=== PATIENT | female | born 1990 | race Caucasian/White ===

== ENCOUNTER 2017-01-18 18:29 | Emergency (ER) | payer OTHER ==
[~2017-01-18] VITALS: Ht 157.5 cm; Wt 80.8 kg
[~2017-01-18 18:29] MED LIST: ONDA4TAB7 SL; PEDICHW34 PO
[2017-01-18 18:38] VITALS: TEMP 36.9; Ht 157.5 cm; Wt 80.8 kg
--- NOTE | 2017-01-18 19:54 | EMERGENCY ROOM VISIT NOTE ---
History First contact with patient: 19:52 Chief Complaint: CHEST PAIN Stated Complaint: CHEST PAIN Nursing Triage Summary: Patient presents with c/o chest pain and shortness of breath that began around 1400 today Has a history of anxiety, states this feels worse History of Present Illness The patient is a 26 year old female who presents to the Emergency Room with complaints of chest pain which originally started as a faint substernal chest pain this morning and has gradually worsening in intensity to a 7/10 at approx 1700 this evening. She states that it radiates to both chests and is described as a heaviness. Worse with specific movements and deep breath. She notes she does have anxiety and has had chest pain with that however "this is worse". She states that she has no history of long travel, OCP use ( has tubal ligation) or history of DVT/PE in her or family. Patient is a smoker. No history of MD/ CVA. Review of Systems A 10 point review of systems was completed and negative aside from above Past Medical/Surgical History Sarcoidosis Anxiety Family History Patient reports no known family medical history. Social History Smoking Status: Current Every Day Smoker Smokeless Tobacco Use: No Alcohol Use: occasionally (hydrocodone) Drug Use: none Marital Status: Housing Status: lives with family Current/Historical Medications Scheduled Fluticasone Prop/Salmeterol (Advair Diskus 100/50 60 Dose), 1 PUFFS INH BID Allergies Hydrocodone Physical Exam Vital Signs Date Time Temp Pulse Resp B/P (MAP) Pulse Ox O2 Delivery O2 Flow Rate FiO2 01/18/17 21:30 76 21 143/95 96 Room Air 01/18/17 21:00 76 26 129/92 96 Room Air 01/18/17 20:50 81 16 99 Room Air 01/18/17 20:30 78 01/18/17 20:30 82 23 128/89 98 Room Air 01/18/17 20:20 98 Room Air 01/18/17 20:20 99 Room Air 01/18/17 18:38 36.9 87 20 152/96 100 Room Air Physical Exam General: ambulatory, not in acute distress Skin: no rashes noted, no suspicious lesions, no areas of inflammations/ lacerations/ erythema noted CVS: S1/ S2 noted, RRR, no rubs/ murmurs noted, no cyanosis, pain not reproducible with palpation RVS: Diffuse expiratory wheezing, not in acute respiratory distress ENT: no erythema/ injection/ ulcerations noted in the pharynx Neck: inspection WNL, full ROM of neck ABD: BSx4, no pain/ tenderness on palpation, no organomegaly, negative murphys, psoas, Rovsing, CVA tenderness MSK: inspection of all limbs WNL, motor and sensation intact in all limbs, no swelling/ pain on palpation of joints NVS: alert and oriented x 3 Lymph: No lymphadenopathy palpable Medical Decision & Procedures ER Provider Diagnostic Interpretation: CHEST ONE VIEW PORTABLE HISTORY: 26 years-old Female chest pain acute atypical chest pain. COMPARISON: None available. TECHNIQUE: Portable upright AP view of the chest FINDINGS: Cardiomediastinal and hilar silhouettes are within normal limits. There is no pneumothorax, pleural effusion, focal airspace consolidation or overt pulmonary edema. The bones appear grossly intact. IMPRESSION: No acute cardiopulmonary process. Laboratory Results 01/18/17 20:05 Red Blood Count 5.16, Mean Corpuscular Volume 84.5, Mean Corpuscular Hemoglobin 28.1, Mean Corpuscular Hemoglobin Concent 33.3, Mean Platelet Volume 10.3, Neutrophils (%) (Auto) 62.7, Lymphocytes (%) (Auto) 18.3, Monocytes (%) (Auto) 10.9, Eosinophils (%) (Auto) 6.9, Basophils (%) (Auto) 0.5, Neutrophils # (Auto ) 6.72, Lymphocytes # (Auto) 1.96, Monocytes # (Auto) 1.17, Eosinophils # (Auto ) 0.74, Basophils # (Auto) 0.05 01/18/17 20:05 Test 01/18/17 19:52 01/18/17 20:05 Creatine Kinase MB Ratio (0-3.0) White Blood Count 10.71 K/uL (4.8-10.8) Red Blood Count 5.16 M/uL (4.2-5.4) Hemoglobin 14.5 g/dL (12.0-16.0) Hematocrit 43.6 % (37-47) Mean Corpuscular Volume 84.5 fL (80-100) Mean Corpuscular Hemoglobin 28.1 pg (25-34) Mean Corpuscular Hemoglobin Concent 33.3 g/dl (32-36) Platelet Count 230 K/uL (130-400) Mean Platelet Volume 10.3 fL (7.4-10.4) Neutrophils (%) (Auto) 62.7 % Lymphocytes (%) (Auto) 18.3 % Monocytes (%) (Auto) 10.9 % Eosinophils (%) (Auto) 6.9 % Basophils (%) (Auto) 0.5 % Neutrophils # (Auto) 6.72 K/uL (1.4-6.5) Lymphocytes # (Auto) 1.96 K/uL (1.2-3.4) Monocytes # (Auto) 1.17 K/uL (0.11-0.59) Eosinophils # (Auto) 0.74 K/uL (0-0.5) Basophils # (Auto) 0.05 K/uL (0-0.2) RDW Standard Deviation 44.3 fL (36.4-46.3) RDW Coefficient of Variation 14.2 % (11.5-14.5) Immature Granulocyte % (Auto) 0.7 % Immature Granulocyte # (Auto) 0.07 K/uL (0.00-0.02) D-Dimer < 190 ug/L FEU (0-500) Anion Gap 7.0 mmol/L (3-11) Est Creatinine Clear Calc Drug Dose 99.1 ml/min Estimated GFR () 110.4 Estimated GFR (Non- 95.3 BUN/Creatinine Ratio 13.2 (10-20) Calcium Level 9.2 mg/dl (8.5-10.1) Total Bilirubin 0.3 mg/dl (0.2-1) Aspartate Amino Transf (AST/SGOT) 21 U/L (15-37) Alanine Aminotransferase (ALT/SGPT) 34 U/L (12-78) Alkaline Phosphatase 103 U/L (45-117) Creatine Kinase MB 0.5 ng/ml (0.5-3.6) Troponin I < 0.015 ng/ml (0-0.045) Total Protein 7.7 gm/dl (6.4-8.2) Albumin 3.8 gm/dl (3.4-5.0) Globulin 3.9 gm/dl (2.5-4.0) Albumin/Globulin Ratio 1.0 (0.9-2) Lipase 123 U/L (73-393) Medications Administered Medications (Trade) Dose Ordered Sig/Karlo Route Start Time Stop Time Status Last Admin Dose Admin Levalbuterol (Xopenex 0.63 Mg/ 3 Ml Neb) 0.63 mg NOW STAT INH 01/18/17 20:26 01/18/17 20:28 DC 01/18/17 20:48 0.63 MG Morphine Sulfate (MoRPHine SULFATE INJ) 2 mg NOW STAT IV 01/18/17 20:59 01/18/17 21:00 DC 01/18/17 21:17 2 MG Ondansetron HCl (Zofran Inj) 4 mg NOW STAT IV 01/18/17 20:59 01/18/17 21:00 DC 01/18/17 21:17 4 MG Ketorolac Tromethamine (Toradol Inj) 30 mg NOW STAT IV 01/18/17 21:30 01/18/17 21:32 DC 01/18/17 21:48 30 MG Lorazepam (Ativan Inj) 0.5 mg NOW STAT IV 01/18/17 21:34 01/18/17 21:35 DC 01/18/17 21:47 0.5 MG ECG Indication: chest pain Rate (beats per minute): 90 Rhythm: normal sinus Findings: no acute ischemic change, no ectopy Comparison ECG Date: no prior available ED Course 1949: Patient was assessed and evaluated by resident 1999: Duoneb x 1 ordered 2024: Duoneb changed to Xopenex 0.63 as the patient has a history of intolerance to albuterol 2049: Improvement in wheezing but no improvement in chest pain; Zofran 4 mg IV x 1, Morphine 2 mg IV x 1 2129: No improvement in pain, Toradol 30 mg IV x 1, states that this is effective ; 0.5 mg Iv ativan 2199: Improvement of chest pain, discussed instructions for discharge and patient agreeable Medical Decision Differential diagnosis: Etiologies such as cardiac ischemia, aortic dissection, pulmonary embolism, bronchitis, pneumonia, pneumothorax, musculoskeletal, infections, pericarditis, myocarditis, esophageal rupture, gastrointestinal, as well as others were entertained. This is a 26 yo f that is here for evaluation of chest pain. The patient on initial presentation had diffuse expiratory wheezing. Xopenex was trialed and there was improvment in wheezing however pain was ongoing. As pain continued and patient does have risk factors for DVT/ PE ( smoker) a ddimer was ordered. This was negative making it unlikely patient is suffering from a pulmonary embolism. CBC did not reveal leukocytosis or anemia. CMP did not reveal any acute processes or QUYNH. Troponin was negative which is reassuring as the patient has been having pain all day. As the patient has worsening pain with specific movements, negative work up patient is most likely suffering from musculoskeletal pain with an element of anxiety and asthma exacerbation. Patient had improvement of symptoms after Toradol and Ativan administration. Plan is for Xopenex q 2h hours over the next 24 hours with wean as well as an rx for advair. Discussed close follow up with PCP and pain control with Tylenol or NSAIDs. [place] Drug Monitoring Program Search Results: patient reviewed within database, no issues identified Blood Pressure Screening Patient's blood pressure: Elevated blood pressure Blood pressure disposition: Elevated BP felt to be situational Impression Primary Impression: Chest wall pain Departure Information Dispostion Home / Self-Care Condition GOOD Prescriptions Fluticasone Prop/Salmeterol (Advair Diskus 100/50 60 Dose) 1 Ea Aerp 1 PUFFS INH BID for 30 Days, #1 INHALER 5 Refills Prov: Vanessa Mccullough MD 01/18/17 Referrals Ayaz Bae (PCP) Patient Instructions My [facility]
[2017-01-18] MEDS ORDERED: ALBUT/IPRATROP 3MG/0.5MG NEB 3 ML VIAL INH SCH (20:00)
--- NOTE | 2017-01-18 20:13 | EMERGENCY ROOM VISIT NOTE ---
ED Visit Note First contact with patient: 19:52 Resident Physician Supervision Note: I interviewed and examined the patient. Discussed with Dr. Mccullough and agree with findings and plan as documented in the note. Documented By: Tima Colin Current/Historical Medications Scheduled Ondansetron (Zofran Odt), 4 MG SL Q6H Pediatric Multiple Vitamin W/ (Gummi Bear Multivitamin/M), 2 TAB PO DAILY Allergies Coded Allergies: Hydrocodone (Verified Allergy, Unknown, itching, 07/05/14) Vital Signs Date Time Temp Pulse Resp B/P (MAP) Pulse Ox O2 Delivery O2 Flow Rate FiO2 01/18/17 18:38 36.9 87 20 152/96 100 Room Air Laboratory Results Test 01/18/17 19:52 01/18/17 20:05 Creatine Kinase MB Ratio (0-3.0) Departure Information Referrals Ayaz Bae (PCP) Patient Instructions My [facility]
[2017-01-18 20:14] LABS: BASO % 0.5 %; BASO ABS # 0.05 K/uL (0-0.2); COMPLETE YES; EOS % 6.9 %; HEMATOCRIT 43.6 % (37-47); IG% 0.7 %; LYMPH % 18.3 %; LYMPH ABS # 1.96 K/uL (1.2-3.4); MEAN CELL VOLUME 84.5 fL (80-100); MEAN CORPUSCULAR HEMOGLOBIN 28.1 pg (25-34); MEAN CORPUSCULAR HGB CONC 33.3 g/dl (32-36); MEAN PLATELET VOLUME 10.3 fL (7.4-10.4); MONO % 10.9 %; NEUT % 62.7 %; PLATELET COUNT 230 K/uL (130-400); RED BLOOD COUNT 5.16 M/uL (4.2-5.4); WHITE BLOOD COUNT 10.71 K/uL (4.8-10.8)
[2017-01-18 20:20] VITALS: O2SAT 99
[2017-01-18] MEDS ORDERED: LEVALBUTEROL 0.63MG/3 ML NEB INH STA (20:26)
[2017-01-18 20:33] LABS: ALT/SGPT 34 U/L (12-78); BLOOD UREA NITROGEN 11 mg/dl (7-18); BUN/CREATININE RATIO 13.2 (10-20); CALCIUM 9.2 mg/dl (8.5-10.1); CARBON DIOXIDE 26 mmol/L (21-32); CHLORIDE 107 mmol/L (98-107); CREATININE 0.84 mg/dl (0.60-1.20); GLUCOSE 99 mg/dl (70-99); POTASSIUM 3.6 mmol/L (3.5-5.1); SODIUM 140 mmol/L (136-145)
--- NOTE | 2017-01-18 20:33 | DIAGNOSTIC IMAGING REPORT ---
CHEST ONE VIEW PORTABLE HISTORY: 26 years-old Female chest pain acute atypical chest pain. COMPARISON: None available. TECHNIQUE: Portable upright AP view of the chest FINDINGS: Cardiomediastinal and hilar silhouettes are within normal limits. There is no pneumothorax, pleural effusion, focal airspace consolidation or overt pulmonary edema. The bones appear grossly intact. IMPRESSION: No acute cardiopulmonary process. The above report was generated using voice recognition software. It may contain grammatical, syntax or spelling errors. Electronically signed by: Alfonso Jain M.D. 01/18/2017 8:32 PM Dictated Date/Time: 01/18/2017 8:31 PM
[2017-01-18 20:38] LABS: ALKALINE PHOSPHATASE 103 U/L (45-117); AST/SGOT 21 U/L (15-37)
[2017-01-18 20:50] VITALS: PULSE 81; O2SAT 99
[2017-01-18] MEDS ORDERED: MoRPHine SULFATE 2 MG/ML CARP IV STA (20:59)
[2017-01-18] MEDS ORDERED: ONDANSETRON INJ 2 MG/ML 2 ML VIAL IV STA (20:59)
[2017-01-18] MEDS ORDERED: KETOROLAC TROMETHAMINE 30 MG/ML VIAL IV STA (21:30)
[2017-01-18] MEDS ORDERED: LORAZEPAM 2 MG/ML 1 ML VIAL IV STA (21:34)
[2017-01-18] MEDS ORDERED: ADVIN10/60 INH (22:00)
[2017-01-18 22:23] VITALS: BP 126/100; PULSE 81; O2SAT 96
== END 2017-01-18 22:20 | disposition home or self-care (01) ==
LOC: C.EDB 18:30 → C.EDC 22:20
DX: R07.89 Other chest pain (principal); J45.901 Unspecified asthma with (acute) exacerbation; Z98.51 Tubal ligation status; F17.210 Nicotine dependence, cigarettes, uncomplicated; D86.9 Sarcoidosis, unspecified